=== PATIENT | female | born 1940 | race Caucasian/White ===

== ENCOUNTER → 2019-06-26 08:29 | Outpatient (BNVA) | payer MEDICARE, OTHER, SELFPAY | PROVIDERS: Family Provider Family Medicine; PCP Family Medicine; Visit Provider Specialist | DX: R41.3 Other amnesia (principal) | CPT/HCPCS: 96116; 99213 ==

== ENCOUNTER → 2019-09-26 10:30 | Outpatient (BNVA) | payer MEDICARE, OTHER, SELFPAY | PROVIDERS: Family Provider Family Medicine; PCP Family Medicine; Visit Provider Specialist | DX: G30.9 Alzheimer's disease, unspecified (principal); F02.80 Dementia in other diseases classified elsewhere, unspecified severity, without behavioral disturbance, psychotic disturbance, mood disturbance, and anxiety | CPT/HCPCS: 99213 ==

== ENCOUNTER → 2020-01-01 11:02 | Outpatient (BNVA) | payer MEDICARE, OTHER, SELFPAY | PROVIDERS: Family Provider Family Medicine; PCP Family Medicine; Visit Provider Specialist | DX: G30.9 Alzheimer's disease, unspecified (principal); F02.80 Dementia in other diseases classified elsewhere, unspecified severity, without behavioral disturbance, psychotic disturbance, mood disturbance, and anxiety | CPT/HCPCS: 99213 ==

== ENCOUNTER 2020-04-25 17:54 | Emergency (ER) | payer MEDICARE, OTHER, SELFPAY ==
[2020-04-25 18:00] VITALS: BP 197/121; PULSE 105; RESP 16; TEMP 36.8; O2SAT 96; BMI 28.3
--- NOTE | 2020-04-25 19:03 | CTR_ITS ---
PROCEDURE INFORMATION: Exam: CT Head Without Contrast Exam date and time: 04/25/2020 7:06 PM Age: 79 years old Clinical indication: Injury or trauma; Blunt trauma (contusions or hematomas); Without loss of consciousness; Patient HX: Backwards fall from standing denies loc C/O dizziness; Additional info: Head injury TECHNIQUE: Imaging protocol: Computed tomography of the head without contrast. Radiation optimization: All CT scans at this facility use at least one of these dose optimization techniques: automated exposure control; mA and/or kV adjustment per patient size (includes targeted exams where dose is matched to clinical indication); or iterative reconstruction. COMPARISON: CT head wo con* [id number] 06/05/2016 4:10 PM RADIATION DOSE METRICS: Total DLP (mGy-cm): 811.99 FINDINGS: Brain: Mild atrophy and mild white matter chronic microvascular changes are noted. No hemorrhage or CT evidence of acute infarction is seen. Cerebral ventricles: No ventriculomegaly. Bones/joints: Unremarkable. No acute fracture. Paranasal sinuses: Visualized sinuses are unremarkable. No fluid levels. Mastoid air cells: Visualized mastoid air cells are well aerated. Soft tissues: A small left parietal scalp hematoma is present. CT/CT head wo con* [id number] IMPRESSION: No acute intracranial abnormality Radiation Dose CTDIVOL = (mGy): DLP = 811.99 (mGy-cm)
--- NOTE | 2020-04-25 19:04 | W.ED.HEATRA ---
HPI - Head Injury General: Chief complaint: Head Injury Stated complaint: FELL TODAY, HIT BACK OF HEAD Time Seen by Provider: 04/25/20 19:02 Source: patient Mode of arrival: ambulatory Limitations: no limitations History of Present Illness: HPI Narrative: 79-year-old female reports tripping in the yard and falling and hitting the back of her head against the ground. Patient denies any loss of consciousness. Patient did feel dizzy shortly after hitting the back of her head. Patient states that she do not feel too bad now but has a tender spot to the back of her head. Patient has a history of hypothyroidism acquired, and dementia. Patient's son is with her at bedside. Review of Systems General: Reports: 10 or more systems reviewed and unremarkable except in HPI and below Skin/Breast: Reports: other (Contusion scalp) [facility] ED PFSH: Medical History (Updated 04/25/20 @ 19:46 by KALANI Mercado) History of breast cancer Surgical History History of right mastectomy Family History Other CAD (coronary artery disease) Diabetes Hypertension Denies family history of Cancer Stroke Social History Smoking and tobacco status: never smoked Alcohol intake: current Alcohol intake frequency: 0-2 Drinks per Day History of recent travel: Yes (travels from [facility]) Physical Exam Const: COMMON NORMALS: no acute distress and patient oriented x3 GENERAL APPEARANCE: cooperative HENMT: COMMON NORMALS: normocephalic, TM's normal bilaterally and Normal external nose present HEAD & SCALP: normal to inspection and normocephalic NOSE: Normal external nose present TYMPANIC MEMBRANE: TM's normal bilaterally MOUTH: Normal oral and palatal mucosa present THROAT: posterior oropharynx normal Eye: GENERAL EYE: appearance normal, both eyes and all related structures Neck/C-Spine: COMMON NORMALS: full ROM Lymph: LYMPHATIC: no lymphadenopathy noted Chest: COMMONS NORMALS: normal inspection of the chest Resp: COMMON NORMALS: normal respiratory effort EFFORT & INSPECTION: Yes able to speak in complete sentences Cardio: COMMON NORMALS: regular rate and regular rhythm RATE: regular rate RHYTHM: regular rhythm GI: COMMON NORMALS: non-tender : COMMON NORMALS: Yes no CVA tenderness BLADDER/KIDNEY EXAM: Yes no CVA tenderness Back/Pelvis: COMMON NORMALS: no CVA tenderness and thoracic and lumbar spine normal to inspection Extremity: COMMON NORMALS: normal to inspection Neuro: COMMON NORMALS: patient oriented x3 and moves all extremities Psych: COMMON NORMALS: mental status grossly normal and cooperative Skin: COMMON NORMALS: no rashes or lesions noted GENERAL SKIN EXAM: no rashes or lesions noted Course Vital Signs: Vital signs: Vital Signs Temperature 98.3 F 04/25/20 18:00 Pulse Rate 105 H 04/25/20 18:00 Respiratory Rate 16 04/25/20 18:00 Blood Pressure 197/121 04/25/20 18:00 Pulse Oximetry 96 04/25/20 18:00 MDM - Head Injury MDM Narrative: Medical decision making narrative: 79-year-old female comes in for concerns of a bump to the occiput of the scalp. Patient is pleasant during exam. Patient reports just tripping in the yard and hitting the back of her head. Patient reports that it is a little tender to the area. Patient has a area of ecchymosis and mild swelling to the left occipital region of the scalp. No focal neuro deficits. Pupils are equal and reactive. Neck has normal range of motion without any tenderness or pain. Differential diagnosis includes skull fracture, intracranial bleeding, concussion. CT scan noted no intracranial bleeding or a fracture. Reviewed exam with patient with recommendations for treatment and follow-up. Patient and family member reported understanding. Discharge Plan Discharge Patient Disposition: Home Clinical Impression: Closed head injury Qualifiers: Encounter type: initial encounter Qualified Code(s): S09.90XA - Unspecified injury of head, initial encounter Condition: Stable Prescriptions: No Action levothyroxine 100 mcg capsule 100 mcg PO DAILY RF: 0 pilocarpine HCl 5 mg tablet 5 mg PO ONCE RF: 0 multivitamin Capsule 1 cap PO DAILY RF: 0 vitamin V39-lodzz acid 500-400 mcg tablet 1 tab PO DAILY RF: 0 galantamine 8 mg capsule,ext rel. pellets 24 hr 8 mg PO QAM Qty: 30 RF: 0 galantamine 16 mg capsule,ext rel. pellets 24 hr 16 mg PO QAM Qty: 30 RF: 0 galantamine 24 mg capsule,ext rel. pellets 24 hr 24 mg PO QAM Qty: 30 RF: 4 Restasis 0.05 % dropperette 1 drop ophthalmic (eye) Q12H Qty: 60 RF: 2 Discharge Orders: Discharge ED (Routine); Ordered 04/25/20 Ordered By: Luca Barker Referrals: Vijay Nugent Jr, MD [Primary Care Provider] - Discharge Diet: Usual diet Discharge Activity: Increase activity as tolerated Patient Instructions: Minor Head Injury (ED) Activity Restrictions/Additional Instructions: Acetaminophen as needed for pain. Drink plenty of water with medication. Activity as tolerated. Follow-up with primary care for further treatment. Return to the emergency department for any concerns. Coding Level of Care Code ED Debt Management Counselor for [place] Fwd Exam Comprehensive
[2020-04-25 20:00] VITALS: BP 186/101; PULSE 88; RESP 18; O2SAT 98
== END 2020-04-25 19:55 | disposition home or self-care (01) ==
PROVIDERS: Emergency Provider Nurse Practitioner Family; PCP Family Medicine
DX: S09.8XXA Other specified injuries of head, initial encounter (principal); Z85.3 Personal history of malignant neoplasm of breast; W01.0XXA Fall on same level from slipping, tripping and stumbling without subsequent striking against object, initial encounter
CPT/HCPCS: 12345; 70450; 99281; 99282

== ENCOUNTER 2020-06-30 08:46 | Emergency (ER) | payer MEDICARE, OTHER, SELFPAY ==
[2020-06-30 08:58] VITALS: BP 184/121; PULSE 106; RESP 22; TEMP 36.6; O2SAT 100; BMI 32.5
--- NOTE | 2020-06-30 09:09 | ECG_ITS ---
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 Measurements Intervals [place] Rate: 80 P: 33 [place]: 204 QRS: -8 QRSD: 81 T: 45 QT: 367 QTc: 425 Interpretive Statements SINUS RHYTHM WITH OCCASIONAL SUPRAVENTRICULAR PREMATURE COMPLEXES MODERATE VOLTAGE CRITERIA FOR LVH, CONSIDER NORMAL VARIANT [MEETS CRITERIA IN ONE OF: R(aVL), S(V1), R(V5), R(V5/V6)+S(V1)] No previous ECG available for comparison Electronically Signed On 07-01-2020 1:12:30 CDT by Michaela Chávez M.D. [id number]
--- NOTE | 2020-06-30 09:09 | XRR_ITS ---
PROCEDURE INFORMATION: Exam: XR Chest Exam date and time: 06/30/2020 9:19 AM Age: 79 years old Clinical indication: Injury or trauma; Fall; Blunt trauma (contusions or hematomas) and swelling (edema); Injury date: 06/28/20 TECHNIQUE: Imaging protocol: XR of the chest Views: 1 view. COMPARISON: CR Chest 2 views* [id number] 04/17/2017 10:41 AM FINDINGS: Lungs: Unremarkable. No consolidation. Pleural spaces: Unremarkable. No pleural effusion. No pneumothorax. Heart/Mediastinum: Unremarkable. No cardiomegaly. Bones/joints: Unremarkable. Soft tissues: The patient has undergone right mastectomy. Surgical clips are present in the right axilla. XR/XR chest 1V portable [id number] IMPRESSION: No significant cardiopulmonary abnormality.
--- NOTE | 2020-06-30 09:10 | W.ED.GENADLT ---
HPI - General Adult General: Chief complaint: General Medical Stated complaint: swollen legs, r side back pain Time Seen by Provider: 06/30/20 08:58 Source: patient and family (daughter in law) Mode of arrival: ambulatory Limitations: altered mental status (chronic dementia) History of Present Illness: HPI narrative: Patient is a nice 79-year-old female with a history of dementia here with her [id number] for complaint of bilateral leg swelling. Patient tells me she believes her legs have been swollen over the past few weeks. She tells me she has fallen a few times over that time. [place] due to rocks and gravel. Patient is not a good historian secondary to her dementia. She has seen Dr. Cueto previously for this. Eptoogbz-df-caw reports her mental status is normal for her. She cannot tell me anything regarding her past medical history or current medications. She has a bag full of old prescription medications (some of them have not been filled since 2019). Onset (ago): week(s) Associated symptoms: Reports no associated symptoms; Deny chest pain, dyspnea, headache(s), nausea, palpitations, syncope or vomiting Treatments prior to arrival: none Review of Systems Const: Denies: fever(s), chills or body aches Eyes: Denies: change in vision Card: Reports: swelling of feet/ankles; Denies: chest pain, palpitations, irregular heart rhythm, edema, lightheadedness, syncope, pre-syncope, dyspnea on exertion, orthopnea, leg pain with exertion or acrocyanosis Resp: Denies: dyspnea, productive cough, hemoptysis or chest congestion GI: Denies: abdominal pain, nausea, vomiting, diarrhea or change in stool character : Denies: flank pain or dysuria Musc: Reports: extremity swelling (bilateral LEs) and joint pain (R hip from a previous fall-ambulatory without difficulty ); Denies: neck pain, back pain, extremity pain or joint swelling Neuro: Denies: headache(s), numbness in extremities, weakness in extremities, sensory changes, difficulty walking, dizziness, vertigo or Slurred speech present [facility] ED PFSH: Medical History (Updated 06/30/20 @ 12:49 by KYLE Tolentino) History of breast cancer Surgical History History of right mastectomy Family History Other CAD (coronary artery disease) Diabetes Hypertension Denies family history of Cancer Stroke Social History Smoking and tobacco status: never smoked Alcohol intake: current Alcohol intake frequency: 0-2 Drinks per Day History of recent travel: Yes (travels from [facility]) Physical Exam Const: COMMON NORMALS: no acute distress, average body habitus, healthy appearing and alert GENERAL APPEARANCE: cooperative ORIENTATION/CONSCIOUSNESS: Yes awake, Yes oriented to person, Yes oriented to place and Yes oriented to time OTHER: at mental baseline per daughter in law HENMT: COMMON NORMALS: normocephalic and atraumatic HEAD & SCALP: normocephalic and atraumatic Eye: COMMON NORMALS: Equal, round and reactive pupils present and EOMs intact bilaterally GENERAL EYE: appearance normal, both eyes and all related structures PUPIL: Yes Equal, round and reactive pupils present Neck/C-Spine: COMMON NORMALS: full ROM CERVICAL SPINE: Yes cervical ROM normal and No Cervical spine tenderness Resp: COMMON NORMALS: normal respiratory effort and clear to auscultation bilaterally AUSCULTATION: clear to auscultation bilaterally Cardio: COMMON NORMALS: regular rate and regular rhythm RATE: regular rate RHYTHM: regular rhythm Back/Pelvis: COMMON NORMALS: thoracic and lumbar spine normal to inspection, no thoracic nor lumbar tenderness and thoraco-lumbar ROM normal Extremity: NARRATIVE EXTREMITY EXAM: bilateral 2+ LE pitting edema RIGHT LOWER EXTREMITY: Yes hip joint Right hip: Yes palpation (TTP posterior ), Yes ROM (normal) and Yes neurovascular exam (normal) Neuro: SENSORIUM/ORIENTATION: Yes alert, Yes oriented to person, Yes oriented to place and Yes oriented to time Skin: COMMON NORMALS: no rashes or lesions noted GENERAL SKIN EXAM: no rashes or lesions noted Course Vital Signs: Vital signs: Vital Signs Temperature 97.8 F 06/30/20 08:58 Pulse Rate 106 H 06/30/20 08:58 Respiratory Rate 20 H 06/30/20 12:00 Blood Pressure 168/98 06/30/20 10:15 Pulse Oximetry 100 06/30/20 08:58 MDM - General Adult MDM Narrative: Medical decision making narrative: Patient's work-up here overall looks good. CXR does not look fluid overloaded. Her BNP is normal. Vital signs are stable. Baseline troponin was 40 with a negative delta. No ischemic changes on her EKGs. Will place patient on low-dose Lasix and have her follow-up with PCP for further evaluation. Lab Data: Labs: Lab Results 06/30/20 06/30/20 06/30/20 Range/Units 09:26 09:26 09:26 WBC 6.1 (4.0-10.0) 10^3/ uL RBC 4.11 (4.1-5.3) 10^6/u L Hgb 13.9 (11.5-15.3) g/dL Hct 44.1 (37.0-47.0) % MCV 107.3 H (81-99) fL MCH 33.8 (28.0-34.0) pg MCHC 31.5 (30.0-36.0) g/dL RDW 13.0 (12.1-15.1) % Plt Count 226 (130-400) 10^3/c mm MPV 11.4 H (7.4-10.4) fL Neut % (Auto) 68.9 % Lymph % (Auto) 19.6 % [place] % (Auto) 10.0 % Eos % (Auto) 0.0 % Baso % (Auto) 1.3 % Neut # (Auto) 4.19 (1.8-7.7) 10^3/u L Lymph # (Auto) 1.2 (0.8-4.8) 10^3/u L [place] # (Auto) 0.6 (0.2-0.9) 10^3/u L Eos # (Auto) 0.0 (0.0-0.8) 10^3/u L Baso # (Auto) 0.1 (0.0-0.1) 10^3/u L Nucleated RBC % (a uto) 0 % Nucleated RBCs # 0.0 /100WBC Sodium Cancelled Potassium Cancelled Chloride Cancelled Carbon Dioxide Cancelled Anion Gap Cancelled BUN Cancelled Creatinine Cancelled GFR Calculation Cancelled Glucose Cancelled Calculated Osmolal ity Cancelled Calcium Cancelled Total Bilirubin Cancelled AST Cancelled ALT Cancelled Alkaline Phosphata se Cancelled Troponin T Baselin e Cancelled Troponin T 120 Min [place] (0-10) ng/L Delta Troponin T (0-10) ABS# NT-Pro-B Natriuret Pep Cancelled Total Protein Cancelled Albumin Cancelled Globulin Cancelled Urine Color (Yellow) Urine Appearance (CLEAR) Urine pH (5-7) Ur Specific Gravit y (1.005-1.030) Urine Protein (Negative) Urine Glucose (UA) (Normal) Urine Ketones (Negative) Urine Blood (Negative) Urine Nitrate (Negative) Urine Bilirubin (Negative) Urine Urobilinogen (Negative) mg/dL Ur Leukocyte Fawn ase (Negative) Urine RBC (0-2) /hpf Urine WBC (0-5) /hpf Ur Squamous Epith Cells (0-5) /hpf Amorphous Sediment Urine Bacteria (NONE) /hpf 06/30/20 06/30/20 06/30/20 Range/Units 10:13 10:13 11:02 WBC (4.0-10.0) 10^3/ uL RBC (4.1-5.3) 10^6/u L Hgb (11.5-15.3) g/dL Hct (37.0-47.0) % MCV (81-99) fL MCH (28.0-34.0) pg MCHC (30.0-36.0) g/dL RDW (12.1-15.1) % Plt Count (130-400) 10^3/c mm MPV (7.4-10.4) fL Neut % (Auto) % Lymph % (Auto) % [place] % (Auto) % Eos % (Auto) % Baso % (Auto) % Neut # (Auto) (1.8-7.7) 10^3/u L Lymph # (Auto) (0.8-4.8) 10^3/u L [place] # (Auto) (0.2-0.9) 10^3/u L Eos # (Auto) (0.0-0.8) 10^3/u L Baso # (Auto) (0.0-0.1) 10^3/u L Nucleated RBC % (a uto) % Nucleated RBCs # /100WBC Sodium 139 Potassium 4.3 Chloride 104 Carbon Dioxide 24 Anion Gap 15.3 BUN 17 Creatinine 0.7 GFR Calculation Not Reportable Glucose 113 Calculated Osmolal ity 290 Calcium 9.0 Total Bilirubin 0.6 AST 23 ALT 14 Alkaline Phosphata se 98 Troponin T Baselin e 40 H Troponin T 120 Min [place] (0-10) ng/L Delta Troponin T (0-10) ABS# NT-Pro-B Natriuret Pep 172 Total Protein 7.1 Albumin 4.3 Globulin 2.8 Urine Color Yellow (Yellow) Urine Appearance Clear (CLEAR) Urine pH 6 (5-7) Ur Specific Gravit y 1.015 (1.005-1.030) Urine Protein Neg (Negative) Urine Glucose (UA) Norm (Normal) Urine Ketones Negative (Negative) Urine Blood 2+ H (Negative) Urine Nitrate Negative (Negative) Urine Bilirubin Neg (Negative) Urine Urobilinogen Norm (Negative) mg/dL Ur Leukocyte Fawn ase Negative (Negative) Urine RBC Rare (0-2) /hpf Urine WBC 0-4 H (0-5) /hpf Ur Squamous Epith Cells 0-4 H (0-5) /hpf Amorphous Sediment Not Reportable Urine Bacteria Trace (NONE) /hpf 04// Range/Units 12:06 WBC (4.0-10.0) 10^3/ uL RBC (4.1-5.3) 10^6/u L Hgb (11.5-15.3) g/dL Hct (37.0-47.0) % MCV (81-99) fL MCH (28.0-34.0) pg MCHC (30.0-36.0) g/dL RDW (12.1-15.1) % Plt Count (130-400) 10^3/c mm MPV (7.4-10.4) fL Neut % (Auto) % Lymph % (Auto) % [place] % (Auto) % Eos % (Auto) % Baso % (Auto) % Neut # (Auto) (1.8-7.7) 10^3/u L Lymph # (Auto) (0.8-4.8) 10^3/u L [place] # (Auto) (0.2-0.9) 10^3/u L Eos # (Auto) (0.0-0.8) 10^3/u L Baso # (Auto) (0.0-0.1) 10^3/u L Nucleated RBC % (a uto) % Nucleated RBCs # /100WBC Sodium Potassium Chloride Carbon Dioxide Anion Gap BUN Creatinine GFR Calculation Glucose Calculated Osmolal ity Calcium Total Bilirubin AST ALT Alkaline Phosphata se Troponin T Baselin e Troponin T 120 Min [place] 37.06 H (0-10) ng/L Delta Troponin T -2.94 L (0-10) ABS# NT-Pro-B Natriuret Pep Total Protein Albumin Globulin Urine Color (Yellow) Urine Appearance (CLEAR) Urine pH (5-7) Ur Specific Gravit y (1.005-1.030) Urine Protein (Negative) Urine Glucose (UA) (Normal) Urine Ketones (Negative) Urine Blood (Negative) Urine Nitrate (Negative) Urine Bilirubin (Negative) Urine Urobilinogen (Negative) mg/dL Ur Leukocyte Fawn ase (Negative) Urine RBC (0-2) /hpf Urine WBC (0-5) /hpf Ur Squamous Epith Cells (0-5) /hpf Amorphous Sediment Urine Bacteria (NONE) /hpf Imaging Data^: CXR: Radiologist's impression: [address] [address] XRay Report Signed Patient: Ayana Ureña #: [id number] : 2Acct#:[id number] Age/Sex: 79 / FADM Date: 06/30/20 Loc: [facility]/Bed: Attending Dr: Ordering Provider/Ordering MD: Vee Lazo Date of Service: 06/30/20 Procedure(s): XR chest 1V portable [id number] Accession Number(s): [id number] Report Number: [id number] PROCEDURE INFORMATION: Exam: XR Chest Exam date and time: 06/30/2020 9:19 AM Age: 79 years old Clinical indication: Injury or trauma; Fall; Blunt trauma (contusions or hematomas) and swelling (edema); Injury date: 06/28/20 TECHNIQUE: Imaging protocol: XR of the chest Views: 1 view. COMPARISON: CR Chest 2 views* [id number] 04/17/2017 10:41 AM FINDINGS: Lungs: Unremarkable. No consolidation. Pleural spaces: Unremarkable. No pleural effusion. No pneumothorax. Heart/Mediastinum: Unremarkable. No cardiomegaly. Bones/joints: Unremarkable. Soft tissues: The patient has undergone right mastectomy. Surgical clips are present in the right axilla. XR/XR chest 1V portable [id number] IMPRESSION: No significant cardiopulmonary abnormality. Dictated By:Waqas Strong Signed By:Waqas StrongSignleila Date/Time:06/30/20 1022 DD/ 1021 XR R hip/pelvis : Radiologist's impression: [address] [address] XRay Report Signed Patient: Ayana Ureña Unit #: [id number] : 1940 Age/Sex: 79 / F ADM Date: 06/30/20 Loc: ER Room/Bed: Attending Dr: Ordering Provider/Ordering MD: Vee Lazo Date of Service: 06/30/20 Procedure(s): XR hip RT 2-3V wo/w pel* [id number] Accession Number(s): [id number] Report Number: [id number] PROCEDURE INFORMATION: Exam: XR Right Hip Exam date and time: 06/30/2020 9:19 AM Age: 79 years old Clinical indication: Pain and injury or trauma; Fall; Blunt trauma (contusions or hematomas); Hip pain; Right hip; Injury date: 05/28/20; Additional info: Fall; One view pelvis too please TECHNIQUE: Imaging protocol: XR Right hip. Views: 1 view hip with pelvis when performed. COMPARISON: CR Pelvis AP 1 or 2 views* [id number] 09/13/2013 10:29 AM FINDINGS: Bones/joints: Degenerative changes are present in the lower lumbar spine with joint space narrowing sclerosis and osteophytes. No fracture or other acute bone or joint abnormalities are seen. Soft tissues: Unremarkable. XR/XR hip RT 2-3V wo/w pel* [id number] IMPRESSION: No fracture seen. Dictated By: Waqas Strong Signed By: Waqas Strong Signed Date/Time: 06/30/20 1024 DD/ 1022 EKG Data^: EKG 1: EKG interpretation date: 06/30/20 EKG interpretation time: 09:59 Interpretation: Sinus rhythm with occasional supraventricular premature complex Rate [address] elevation or depression changes noted Computer generated interpretation: Chest X-Ray 06/30/20 09:09 IMPRESSION: No significant cardiopulmonary abnormality. Hip/Pelvis X-Ray 06/30/20 09:13 IMPRESSION: No fracture seen. EKG 2: EKG interpretation date: 06/30/20 EKG interpretation time: 10:46 Interpretation: Sinus arrhythmia Rate [address] elevation or depression changes noted Computer generated interpretation: Chest X-Ray 06/30/20 09:09 IMPRESSION: No significant cardiopulmonary abnormality. Hip/Pelvis X-Ray 06/30/20 09:13 IMPRESSION: No fracture seen. Discharge Plan Discharge Patient Disposition: Home Clinical Impression: Bilateral edema of lower extremity Condition: Stable Prescriptions: New Lasix 20 mg tablet 20 mg PO DAILY Qty: 30 RF: 0 No Action pilocarpine HCl 5 mg tablet 5 mg PO DAILY PRN (Reason: Dry Mouth) RF: 0 multivitamin Capsule 1 cap PO DAILY RF: 0 vitamin N97-nbyze acid 500-400 mcg tablet 1 tab PO DAILY RF: 0 levothyroxine 175 mcg tablet 175 mcg PO DAILY RF: 0 Discharge Orders: Discharge ED (Routine); Ordered 06/30/20 Ordered By: Vee Lazo Patient Instructions: Leg Edema (ED) Activity Restrictions/Additional Instructions: As discussed please contact your primary care provider Dr. Braxton to schedule a follow-up visit for further evaluation. Coding Level of Care Code ED Auricular Acupuncturist for Chg Fwd Exam Comprehensive
--- NOTE | 2020-06-30 09:13 | XRR_ITS ---
PROCEDURE INFORMATION: Exam: XR Right Hip Exam date and time: 06/30/2020 9:19 AM Age: 79 years old Clinical indication: Pain and injury or trauma; Fall; Blunt trauma (contusions or hematomas); Hip pain; Right hip; Injury date: 05/28/20; Additional info: Fall; One view pelvis too please TECHNIQUE: Imaging protocol: XR Right hip. Views: 1 view hip with pelvis when performed. COMPARISON: CR Pelvis AP 1 or 2 views* [id number] 09/13/2013 10:29 AM FINDINGS: Bones/joints: Degenerative changes are present in the lower lumbar spine with joint space narrowing sclerosis and osteophytes. No fracture or other acute bone or joint abnormalities are seen. Soft tissues: Unremarkable. XR/XR hip RT 2-3V wo/w pel* [id number] IMPRESSION: No fracture seen.
[2020-06-30 09:36] LABS: Basophils # 0.1 10^3/uL (0.0-0.1); Basophils % 1.3 %; Hematocrit 44.1 % (37.0-47.0); Hemoglobin 13.9 g/dL (11.5-15.3); Lymphocytes # 1.2 10^3/uL (0.8-4.8); Lymphocytes % 19.6 %; Mean Corpuscular HGB Conc 31.5 g/dL (30.0-36.0); Mean Corpuscular Hemoglobin 33.8 pg (28.0-34.0); Mean Corpuscular Volume 107.3 fL (81-99); Mean Platelet Volume 11.4 fL (7.4-10.4); Monocytes # 0.6 10^3/uL (0.2-0.9); Neutrophils # 4.19 10^3/uL (1.8-7.7); Neutrophils % 68.9 %; Nucleated Red Blood Cells % 0 %; Platelet Count 226 10^3/cmm (130-400); Red Blood Count 4.11 10^6/uL (4.1-5.3); White Blood Count 6.1 10^3/uL (4.0-10.0)
[2020-06-30 10:15] VITALS: BP 168/98; RESP 20
[2020-06-30 10:41] LABS: Troponin(5th) Baseline 40 ng/L (0-10)
[2020-06-30 10:49] LABS: Alanine Aminotransferase 14 U/L (0-33); Albumin Level 4.3 g/dL (3.5-5.2); Alkaline Phosphatase 98 IU/L (35-105); Aspartate Amino Transferase 23 U/L (0-32); Blood Urea Nitrogen 17 mg/dL (8-23); Carbon Dioxide 24 mmol/L (22-29); Chloride 104 mmol/L (98-107); Globulin 2.8 g/dL (1.3-4.6); Glucose 113 mg/dL (65-115); NT Pro B Type Natriuretic Pept 172 pg/mL (0-450); Osmolality Calculated 290 mOsm/kg (285-295); Sodium 139 mmol/L (136-145); Total Bilirubin 0.6 mg/dL (0.15-1.2); Total Protein 7.1 g/dL (6.6-8.7)
--- NOTE | 2020-06-30 11:09 | ECG_ITS ---
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 Measurements Intervals [place] Rate: 76 P: 34 [place]: 201 QRS: -9 QRSD: 81 T: 30 QT: 366 QTc: 413 Interpretive Statements SINUS RHYTHM MODERATE VOLTAGE CRITERIA FOR LVH, CONSIDER NORMAL VARIANT [MEETS CRITERIA IN ONE OF: R(aVL), S(V1), R(V5), R(V5/V6)+S(V1)] Compared to ECG 06/30/2020 09:59:55 No significant changes Electronically Signed On 07-01-2020 1:14:47 CDT by Michaela Chávez M.D. [id number]
[2020-06-30 11:55] LABS: Anion Gap 15.3 (5-19); Potassium 4.3 mmol/L (3.5-5.1)
[2020-06-30 12:00] VITALS: RESP 20
[2020-06-30 12:08] LABS: Glucose Urine UA Norm (Normal); Protein Urine Neg (Negative); Specific Gravity, Urine 1.015 (1.005-1.030); Urine Appearance Clear (CLEAR); Urine Color Yellow (Yellow); pH Urine 6 (5-7)
[2020-06-30 12:09] LABS: Bilirubin Urine Neg (Negative); Blood Urine 2+ (Negative); Ketones Urine Negative (Negative); Leukocyte Esterase Urine Negative (Negative); Nitrate Urine Negative (Negative); Urobilinogen Urine Norm (Negative)
[2020-06-30 12:10] LABS: Add Urine Culture? No; Add Urine Microscopic? YES; Bacteria Urine TRACE /hpf; RBC Urine RARE /hpf (0-2); Squamous Epithelial Cell Urine 0-4 /hpf (0-5); WBC Urine 0-4 /hpf (0-5)
[2020-06-30 12:42] LABS: Troponin 5 2HR 37.06 ng/L (0-10)
[2020-06-30 12:44] LABS: Troponin 5 2HR Delta -2.94 ABS# (0-10)
[2020-06-30 12:57] VITALS: RESP 20
== END 2020-06-30 12:57 | disposition home or self-care (01) ==
PROVIDERS: Emergency Provider Physician Assistant
DX: R60.0 Localized edema (principal); Z85.3 Personal history of malignant neoplasm of breast; F03.90 Unspecified dementia, unspecified severity, without behavioral disturbance, psychotic disturbance, mood disturbance, and anxiety
CPT/HCPCS: 71045; 73502; 80053; 81001; 83880; 84484; 85025; 93005; 99283